=== PATIENT | female | born 1995 | race Caucasian/White ===

== ENCOUNTER 2017-01-20 20:18 | Emergency (ER) | payer OTHER ==
[~2017-01-20 20:18] MED LIST: CAMRESE 0.15-01 EACH PO; CEFDINIR300 MG PO; DUONEB 2.5-0.5MG3 ML INH; MEDROL4 M1 PO; TESSALON PERLE100 MG PO; ZITHROMAX250 MG PO
== END 2017-01-20 23:12 | disposition home or self-care (01) ==
LOC: ER 20:18
DX: J06.9 Acute upper respiratory infection, unspecified (principal); R50.9 Fever, unspecified; R05 Cough; Z79.3 Long term (current) use of hormonal contraceptives
CPT/HCPCS: 87400; 99283